=== PATIENT | male | born 1985 | race Caucasian/White ===

== ENCOUNTER 2016-12-29 19:24 | Emergency (ER) | payer MEDICAID ==
[~2016-12-29] VITALS: Ht 167.6 cm; Wt 69.0 kg
[~2016-12-29 19:24] MED LIST: AZIT250T94 PO; CHLO10CA6 PO; CHLO25CA9 PO; CODE118S PO
[2016-12-29 19:26] VITALS: Ht 167.6 cm; Wt 69.0 kg
[2016-12-29] MEDS ORDERED: ACETAMINOPHEN 325 MG TAB PO STA (20:27)
[2016-12-29] MEDS ORDERED: CEFTRIAXONE 1 GM/50 ML (PMX) 50 ML IVPB STA (20:27)
[2016-12-29] MEDS ORDERED: ONDANSETRON 4 MG INJ IV STA (20:27)
[2016-12-29] MEDS ORDERED: SOD CHLORIDE 0.9% IV ONE (20:30)
--- NOTE | 2016-12-29 21:00 | RADRPT ---
PROCEDURE: XR Chest. CLINICAL INDICATION: Possible sepsis. TECHNIQUE: Single frontal view of the chest. COMPARISON: 05/25/2016. FINDINGS: The cardiomediastinal silhouette is within normal limits. The lungs are clear. No signs of pleural f luid or pneumothorax are seen. The osseous structures and soft tissues are unremarkable. IMPRESSION: No evidence for active cardiopulmonary disease. RPTAT: [facility] Physician Dimple Date Time Electronically viewed and signed by Ruben Patino Physician on 12/29/2016 20:59 RS/
[2016-12-29 21:13] LABS: ADD SCAN DIFF NO
[2016-12-29 21:15] LABS: BASOPHILS % 0.3 % (0.0-2.0); EOSINOPHILS % 0.6 % (0.0-7.0); HEMATOCRIT 40.5 % (42.0-52.0); HEMOGLOBIN 14.3 g/dl (14.0-18.0); LYMPHOCYTES # 0.8 10^3/ul (0.8-2.9); LYMPHOCYTES % 11.5 % (15.0-51.0); MEAN CORPUSCULAR HGB CONC 35.3 g/dl (32.0-37.0); MEAN CORPUSCULAR VOLUME 87.7 fl (82.0-101.0); MEAN PLATELET VOLUME 8.6 fl (7.4-10.4); MONOCYTE # 0.6 10^3/ul (0.3-0.9); MONOCYTES % 8.8 % (0.0-11.0); NEUTROPHIL # 5.3 10^3/ul (1.6-7.5); NEUTROPHILS % 78.7 % (39.0-77.0); PLATELET COUNT 193 10^3/UL (140-415); RED BLOOD COUNT 4.62 10^6/ul (4.70-6.10); RED CELL DISTRIBUTION WIDTH 12.2 % (11.5-14.5); WHITE BLOOD COUNT 6.7 10^3/ul (4.8-10.8)
--- NOTE | 2016-12-29 21:20 | ERA ---
ER Documentation Chief Complaint Date/Time DATE: 12/29/16 TIME: 21:16 Chief Complaint upper abd pain x 3 days, headache HPI This is a 31-year-old Citizen Of [place]-speaking male presenting with mother who is the health care assistant and seems reliable. Patient has had 3 days of nausea vomiting and 1 day of diarrhea. Patient has reported a fever chills, and general malaise. Patient denies taking any medications to relieve the symptoms. Patient denies any medical conditions. Patient denies cough, pharyngitis, difficulty breathing , chest pain, or headache. Mother denies any altered mental status or change in behavior. ROS All systems reviewed and are negative except as per history of present illness. Medications Home Meds Active Scripts Chlordiazepoxide* (Chlordiazepoxide*) 25 Mg Capsule, 25 MG PO Q8 Y for CONTROL WITHDRAWAL SYMPTOMS, #10 CAP Prov:LUIS ARZOLA 07/12/16 Chlordiazepoxide* (Chlordiazepoxide*) 10 Mg Capsule, 10 MG PO TID, #30 CAP Prov:LUIS ARZOLA 06/19/16 Promethazine w/Codeine (Phenergan w/Codeine Syrup) 5 Ml Syrup, 5 ML PO Q6 Y for COUGH, #120 ML Prov:TRAVIS KENDRICK DO 11/19/15 Azithromycin* (Zithromax*) 250 Mg Tablet, 250 MG PO .ZPACK DIRECTED, #6 TAB TAKE 500 MG (2 TABS) THE FIRST DAY THEN 250 MG (1 TAB) DAYS 2-5 Prov:TRAVIS KENDRICK DO 11/19/15 Allergies Allergies: Coded Allergies: No Known Allergy (Unverified , 11/19/15) PMhx/Soc History of Surgery: No Anesthesia Reaction: No Hx Neurological Disorder: No Hx Respiratory Disorders: No Hx Cardiac Disorders: Yes (pt states low blood pressure) Hx Psychiatric Problems: No Hx Miscellaneous Medical Probl: Yes (ALCOHOLISM WITH WITHDRAWL) Hx Alcohol Use: Yes (binge drinking) Hx Substance Use: No Hx Tobacco Use: No Smoking Status: Never smoker Physical Exam Vitals Vital Signs Date Time Temp Pulse Resp B/P Pulse Ox O2 Delivery O2 Flow Rate FiO2 12/29/16 19:26 101.0 104 20 121/74 100 Physical Exam Const: Well-appearing 31-year-old male presenting with mother in moderate distress. Head: Atraumatic Eyes: Normal Conjunctiva. EOMI. PERRLA. ENT: Normal External Ears, Nose and Mouth. Neck: Full range of motion..~ No meningismus. Resp: Clear to auscultation bilaterally Cardio: Tachycardic. Regular rhythm, no murmurs Abd: Soft, non tender, non distended. Normal bowel sounds. No McBurney's point tenderness. No psoas sign. Skin: Perioral raise papular rash sparing the vermilion border. This rash is new in onset. No rashes visualized anywhere else in the body as well as no history given. Back: No midline or flank tenderness Ext: No cyanosis, or edema Neur: Awake and alert Psych: Normal Mood and Affect Result Diagram: 12/29/16210512/29/162105 Results 24 hrs Laboratory Tests Test 12/29/16 20:48 12/29/16 21:06 Urine Color LT. YELLOW Urine Clarity CLEAR Urine pH 5.5 Urine Specific English 1.020 Urine Ketones NEGATIVE Urine Nitrite NEGATIVE Urine Bilirubin NEGATIVE Urine Urobilinogen 0.2 E.U./dL Urine Leukocyte Esterase NEGATIVE Urine Hemoglobin NEGATIVE Urine Glucose NEGATIVE% Urine Total Protein NEGATIVE White Blood Count 6.710^3/ul Red Blood Count 4.6210^6/ul Hemoglobin 14.3g/dl Hematocrit 40.5% Mean Corpuscular Volume 87.7fl Mean Corpuscular Hemoglobin 31.0pg Mean Corpuscular Hemoglobin Concent 35.3g/dl Red Cell Distribution Width 12.2% Platelet Count 65097^3/UL Mean Platelet Volume 8.6fl Neutrophils % 78.7% Lymphocytes % 11.5% Monocytes % 8.8% Eosinophils % 0.6% Basophils % 0.3% Nucleated Red Blood Cells % 0.0/100WBC Neutrophils # 5.310^3/ul Lymphocytes # 0.810^3/ul Monocytes # 0.610^3/ul Eosinophils # 0.010^3/ul Basophils # 0.010^3/ul Nucleated Red Blood Cells # 0.010^3/ul Prothrombin Time 12.8Sec Prothrombin Time Ratio 1.0 INR International Normalized Ratio 0.96 Activated Partial Thromboplast Time 29.7Sec Sodium Level 136mmol/L Potassium Level 3.7mmol/L Chloride Level 101mmol/L Carbon Dioxide Level 23mmol/L Anion Gap 16 Blood Urea Nitrogen 17mg/dl Creatinine 1.00mg/dl Glucose Level 95mg/dl Lactic Acid Level 0.8mmol/L Calcium Level 9.1mg/dl Total Bilirubin 0.5mg/dl Direct Bilirubin 0.00mg/dl Indirect Bilirubin 0.5mg/dl Aspartate Amino Transf (AST/SGOT) 25IU/L Alanine Aminotransferase (ALT/SGPT) 28IU/L Alkaline Phosphatase 63IU/L Total Protein 7.8g/dl Albumin 4.6g/dl Globulin 3.20g/dl Albumin/Globulin Ratio 1.43 Current Medications Medications (Trade) Dose Ordered Sig/Yovana Route PRN Reason Start Time Stop Time Status Last Admin Dose Admin Acetaminophen 650 mg 650 mg ONCE STAT PO 12/29/16 20:27 12/29/16 20:33 DC 12/29/16 21:22 Ceftriaxone Sodium (Rocephin) 50 ml @ 100 mls/hr ONCE STAT IVPB 12/29/16 20:27 12/29/16 21:32 DC 12/29/16 21:22 Ondansetron HCl 4 mg 4 mg ONCE STAT IV 12/29/16 20:27 12/29/16 20:33 DC 12/29/16 21:22 Sodium Chloride (NS) 2,140 ml @ 2,140 mls/hr BOLUS X1 ONCE IV 12/29/16 20:30 12/29/16 21:29 DC 12/29/16 21:22 Procedures/MDM Patient's 31-year-old male being evaluated with a chief complaint of nausea vomiting and diarrhea. Patient met the sepsis criteria this sepsis labs, chest x-ray, saline and antibiotic was ordered. Labs came back showed no leukocytosis thus antibiotic was canceled before given. All other test results were unremarkable. Patient's labs were remarkable for lymphocytopenia and neutrophilia. At this time I am unable to rule out chronic conditions but have no suspicion for appendicitis, meningitis, PE, ACS, pneumonia, bacteremia, AOM, or endangerment of the airway. Patient's vaccination status is up-to-date. At this time the most likely diagnosis is viral gastroenteritis causing fever. Treatment plan will thus include antipyretics for fever and Zofran for nausea. As well as close follow-up. Diarrhea is not a major complaint for patient so antidiarrheals will not be given. Patient will be given discharge instructions and I have sat down and discussed the importance of follow-up within 12 hours if condition is not improving. Departure Condition: Stable Additional Instructions: Follow up with your PCP within the next 1-3 days for a more thorough evaluation and a possible referral to a specialist. Return the the emergency department immediately if symptoms worsen or change. If you have any questions regarding medications, ask your pharmacist or us before you leave. If any adverse reactions occur while taking your medications, discontinue the treatment and return to the emergency department immediately. Take your medications as directed, and complete the entire course of treatment. ARSALAN FLORES PA-C December 29, 2016 21:20
[2016-12-29 21:31] LABS: INR 0.96; PROTIME 12.8 Sec (12.2-14.2)
[2016-12-29 21:32] LABS: ALBUMIN 4.6 g/dl (3.3-4.9); PARTIAL THROMBOPLASTIN TIME 29.7 Sec (25.0-35.0)
[2016-12-29 21:33] LABS: POTASSIUM 3.7 mmol/L (3.5-5.1)
[2016-12-29 21:35] LABS: ALBUMIN/GLOBULIN RATIO 1.43; BILIRUBIN,INDIRECT 0.5 mg/dl (0-1.1); BILIRUBIN,TOTAL 0.5 mg/dl (0.2-1.3); CALCIUM 9.1 mg/dl (8.4-10.2); TOTAL PROTEIN 7.8 g/dl (6.1-8.1)
[2016-12-29 21:40] LABS: ADD UMIC NO; URINE BILIRUBIN (Dip) NEGATIVE (NEGATIVE); URINE BLOOD (Dip) NEGATIVE (NEGATIVE); URINE COLOR LT. YELLOW (YELLOW); URINE GLUCOSE (Dip) NEGATIVE (NEGATIVE); URINE KETONES (Dip) NEGATIVE (NEGATIVE); URINE LEUKOCYTE ESTERASE (Dip) NEGATIVE (NEGATIVE); URINE NITRITE (Dip) NEGATIVE (NEGATIVE); URINE TOTAL PROTEIN (Dip) NEGATIVE (NEGATIVE); URINE UROBILINOGEN (Dip) 0.2 E.U./dL (0.1-1.0)
[2016-12-29] MEDS ORDERED: ONDA8TAB14 PO (23:01)
[2016-12-29] MEDS ORDERED: IBUP-1542 PO (23:01)
[2016-12-29 23:14] VITALS: BP 118/65; PULSE 92; RESP 16; TEMP 100.4
== END 2016-12-29 23:15 | disposition home or self-care (01) ==
LOC: FTE 19:24
DX: R11.2 Nausea with vomiting, unspecified (principal); R19.7 Diarrhea, unspecified; R50.9 Fever, unspecified; R53.81 Other malaise
CPT/HCPCS: 36415; 71010; 80053; 81003; 83605; 85025; 85610; 85730; 87040; 87086; 96374; 96375; J0696; J2405; J7030; Z7502; Z7610

== ENCOUNTER 2017-07-26 19:11 | Emergency (ER) | payer MEDICAID ==
[~2017-07-26] VITALS: Ht 172.7 cm; Wt 68.1 kg
[~2017-07-26 19:11] MED LIST changes: +IBUP-1542 PO; +ONDA8TAB14 PO
[2017-07-26 19:16] VITALS: Ht 172.7 cm; Wt 68.1 kg
[2017-07-26] MEDS ORDERED: ALBUTEROL 0.083% (NEB) 2.5 MG/3 ML AMP HHN STA (20:20)
[2017-07-26] MEDS ORDERED: predniSONE 20 MG TAB PO ONE (20:30)
[2017-07-26] MEDS ORDERED: PRED20TA PO (20:57)
[2017-07-26] MEDS ORDERED: AZIT250T94 PO (20:57)
[2017-07-26] MEDS ORDERED: ALBU8.5H3 INH (20:57)
--- NOTE | 2017-07-26 21:01 | ERD ---
ER Documentation Chief Complaint Chief Complaint cough x 2 weeks HPI 32-year-old male presents with cough for last 2 weeks. He has productive mucus. He denies fevers. Denies any history of asthma. Is chest pain, vomiting, abdominal pain. ROS All systems reviewed and are negative except as per history of present illness. Medications Home Meds Active Scripts Azithromycin* (Zithromax*) 250 Mg Tablet, 250 MG PO .ZPACK DIRECTED, #6 TAB TAKE 500 MG (2 TABS) THE FIRST DAY THEN 250 MG (1 TAB) DAYS 2-5 Prov:SHALINI HENDERSON MD 07/26/17 Albuterol Sulfate* (Proair HFA*) 8.5 Gm Hfa.aer.ad, 2 PUFF INH Q4, #1 INHALER Prov:SHALINI HENDERSON MD 07/26/17 Prednisone* (Prednisone*) 20 Mg Tab, 40 MG PO DAILY for 4 Days, TAB Start July 27, 2017 Prov:SHALINI HENDERSON MD 07/26/17 Ondansetron (Ondansetron Odt) 8 Mg Tab.rapdis, 8 MG PO Q6H Y for NAUSEA AND/OR VOMITING, #10 TAB Prov:ARSALAN FLORES PA-C 12/29/16 Ibuprofen* (Motrin*) 600 Mg Tab, 600 MG PO Q8, #30 TAB Prov:ARSALAN FLORES PA-C 12/29/16 Chlordiazepoxide* (Chlordiazepoxide*) 25 Mg Capsule, 25 MG PO Q8 Y for CONTROL WITHDRAWAL SYMPTOMS, #10 CAP Prov:LUIS ARZOLA 07/12/16 Chlordiazepoxide* (Chlordiazepoxide*) 10 Mg Capsule, 10 MG PO TID, #30 CAP Prov:LUIS ARZOLA 06/19/16 Promethazine w/Codeine (Phenergan w/Codeine Syrup) 5 Ml Syrup, 5 ML PO Q6 Y for COUGH, #120 ML Prov:TRAVIS KENDRICK DO 11/19/15 Azithromycin* (Zithromax*) 250 Mg Tablet, 250 MG PO .ZPACK DIRECTED, #6 TAB TAKE 500 MG (2 TABS) THE FIRST DAY THEN 250 MG (1 TAB) DAYS 2-5 Prov:TRAVIS KENDRICK DO 11/19/15 Allergies Allergies: Coded Allergies: No Known Allergy (Unverified , 11/19/15) PMhx/Soc Medical and Surgical Hx: pt denies Medical Hx, pt denies Surgical Hx History of Surgery: No Anesthesia Reaction: No Hx Neurological Disorder: No Hx Respiratory Disorders: No Hx Cardiac Disorders: No Hx Psychiatric Problems: No Hx Miscellaneous Medical Probl: No Hx Alcohol Use: No (PREVIOUS ETOH ABUSE) Hx Substance Use: No Hx Tobacco Use: No Smoking Status: Never smoker Physical Exam Vitals Vital Signs Date Time Temp Pulse Resp B/P Pulse Ox O2 Delivery O2 Flow Rate FiO2 07/26/17 20:53 77 16 97 21 07/26/17 19:16 97.7 62 20 127/68 100 Physical Exam Const: [] Alert, [id number] per Head: Atraumatic Eyes: Normal Conjunctiva ENT: Normal External Ears, Nose and Mouth. TMs and oropharynx normal. Neck: Full range of motion..~ No meningismus. Resp: Get with wheezing without rales, retractions. Cardio: Regular rate and rhythm, no murmurs Abd: Soft, non tender, non distended. Normal bowel sounds Skin: No petechiae or rashes Back: No midline or flank tenderness Ext: No cyanosis, or edema Neur: Awake and alert Psych: Normal Mood and Affect Results 24 hrs Current Medications Medications (Trade) Dose Ordered Sig/Yovana Route PRN Reason Start Time Stop Time Status Last Admin Dose Admin Prednisone (Prednisone) 40 mg ONCE ONCE PO 07/26/17 20:30 07/26/17 20:31 DC 07/26/17 20:24 Albuterol (Proventil 0.083% (Neb)) 2.5 mg ONCE STAT HHN 07/26/17 20:20 07/26/17 20:22 DC 07/26/17 20:53 Procedures/MDM She presents with URI symptoms and signs of wheezing without evidence of respiratory distress or hypoxemia. Chest X-ray 1V Interpreted by me: Soft Tissue: No acute abnormalities Bones: No acute abnormalities Mediastinum/Cardiac Silhouette/Lungs: [No acute abnormalities] impression- normal 1 view chest x-ray Patient is given albuterol treatment 1, prednisone 60 mg by mouth. Patient has signs of bronchitis with wheezing and will be treated with pro-air, Zithromax, short course of prednisone, primary care follow-up and return precautions. There is no evidence of hypoxemia, respiratory distress, signs of pneumonia, signs to suggest acute coronary syndrome, abdominal pain, additional emergent causes of presenting complaints. The patient was stable with no new complaints during the ER course. Clinically, there is no current evidence to suggest meningitis, sepsis, acute abdomen, pneumonia, acute coronary syndrome, pulmonary embolism, or any other emergent condition appearing to require further evaluation or hospitalization. The patient should certainly return for any new or worsening symptoms per the aftercare instructions. They should otherwise follow-up with her primary care doctor for reevaluation this week. Departure Diagnosis: Primary Impression: Wheezing Additional Impression: Acute bronchitis Bronchitis organism: unspecified organism Qualified Code: J20.9 - Acute bronchitis, unspecified organism Condition: Stable Patient Instructions: Bronchitis With Wheezing (Adult) Additional Instructions: X-ray normal. Cheque otro vez con euceda doctor primario en el proximo crane or regresa para mas o nueva simptomas. SHALINI HENDERSON MD Jul 26, 2017 21:01
--- NOTE | 2017-07-26 21:05 | RADRPT ---
PROCEDURE: XR Chest. CLINICAL INDICATION: chest pain TECHNIQUE: Single frontal view of the chest was obtained COMPARISON: 05/25/16 FINDINGS: The heart and mediastinum are within normal limits. The lungs are clear. There is no pleural effusion or pneumothorax. RPTAT: AA IMPRESSION: No acute disease. .Lv Saxena MD, MD Date Time Electronically viewed and signed by .Lv Saxena MD, on 07/26/2017 21:05 .S/
== END 2017-07-26 21:09 | disposition home or self-care (01) ==
LOC: FTE 19:11
DX: J20.9 Acute bronchitis, unspecified (principal)
CPT/HCPCS: 71010; 94664; J7512; Z7502; Z7610

== ENCOUNTER 2018-07-06 05:55 | Emergency (ER) | END 2018-07-06 08:03 | disposition home or self-care (01) ==

== ENCOUNTER 2018-07-07 04:51 | Emergency (ER) | END 2018-07-07 06:10 | disposition home or self-care (01) ==

== ENCOUNTER 2018-08-01 00:45 | Emergency (ER) | payer MEDICAID ==
[~2018-08-01] VITALS: Ht 165.1 cm; Wt 97.3 kg
[~2018-08-01 00:45] MED LIST changes: +ALBU8.5H8 INH; +AZIT250T PO; -AZIT250T94 PO; +LORA-441 PO; +PRED20TA PO
[2018-08-01 00:48] VITALS: Ht 165.1 cm; Wt 97.3 kg
[2018-08-01] MEDS ORDERED: ACETAMINOPHEN 325 MG TAB PO ONE (04:30)
[2018-08-01] MEDS ORDERED: CHLO25CA9 PO (04:41)
[2018-08-01] MEDS ORDERED: ACET500C5 PO (04:41)
[2018-08-01 04:55] VITALS: BP 129/91; PULSE 71; RESP 15
--- NOTE | 2018-08-01 06:10 | ERD ---
ER Documentation Chief Complaint Chief Complaint vomiting/FLYNN/anxiety/lack of sleep x4 days s/p drinking. last etoh yest HPI 33-year-old male with history of alcohol abuse present ED for symptoms of alcohol withdrawal. Patient states that he was binge drinking for last 4 days. He now complains of constant chest pain for the last 3 days. Patient also complaining of not able to sleep because of anxiety and chest pain. He reports episodes of vomiting, but denies nausea and vomiting at this time. He did not take any medication for pain at home. Denies shortness of breath. Denies suicidal or homicidal ideations. ROS All systems reviewed and are negative except as per history of present illness. Medications Home Meds Active Scripts Acetaminophen* (Tylophen*) 500 Mg Capsule, 1 CAP PO Q6H PRN for PAIN AND OR ELEVATED TEMP, #20 CAP Prov:JOHNNY ROBERTSON NP 08/01/18 Chlordiazepoxide* (Chlordiazepoxide*) 25 Mg Capsule, 25 MG PO Q8, #10 CAP Prov:JOHNNY ROBERTSON NP 08/01/18 Lorazepam* (Ativan*) 0.5 Mg Tablet, 0.5 MG PO Q8, #7 TAB Prov:LORA BULLOCK MD 07/06/18 Azithromycin* (Zithromax*) 250 Mg Tablet, 250 MG PO .ZPACK DIRECTED, #6 TAB TAKE 500 MG (2 TABS) THE FIRST DAY THEN 250 MG (1 TAB) DAYS 2-5 Prov:SHALINI HENDERSON MD 07/26/17 Albuterol Sulfate* (Proair HFA*) 8.5 Gm Hfa.aer.ad, 2 PUFF INH Q4, #1 INHALER Prov:SHALINI HENDERSON MD 07/26/17 Prednisone* (Prednisone*) 20 Mg Tab, 40 MG PO DAILY for 4 Days, TAB Start July 27, 2017 Prov:SHALINI HENDERSON MD 07/26/17 Ondansetron (Ondansetron Odt) 8 Mg Tab.rapdis, 8 MG PO Q6H PRN for NAUSEA AND/OR VOMITING, #10 TAB Prov:ARSALAN FLORES PA-C 12/29/16 Ibuprofen* (Motrin*) 600 Mg Tab, 600 MG PO Q8, #30 TAB Prov:ARSALAN FLORES PA-C 12/29/16 Chlordiazepoxide* (Chlordiazepoxide*) 25 Mg Capsule, 25 MG PO Q8 PRN for CONTROL WITHDRAWAL SYMPTOMS, #10 CAP Prov:LUIS ARZOLA Meri 07/12/16 Chlordiazepoxide* (Chlordiazepoxide*) 10 Mg Capsule, 10 MG PO TID, #30 CAP Prov:DAVIDOSVALDO HUMPHREYEL Karmen. 06/19/16 Promethazine w/Codeine (Phenergan w/Codeine Syrup) 5 Ml Syrup, 5 ML PO Q6 PRN for COUGH, #120 ML Prov:TRAVIS KENDRICK DO 11/19/15 Azithromycin* (Zithromax*) 250 Mg Tablet, 250 MG PO .ZPACK DIRECTED, #6 TAB TAKE 500 MG (2 TABS) THE FIRST DAY THEN 250 MG (1 TAB) DAYS 2-5 Prov:TRAVIS KENDRICK DO 11/19/15 Allergies Allergies: Coded Allergies: No Known Allergy (Unverified , 11/19/15) PMhx/Soc History of Surgery: No Anesthesia Reaction: No Hx Neurological Disorder: No Hx Respiratory Disorders: No Hx Cardiac Disorders: No Hx Psychiatric Problems: No Hx Miscellaneous Medical Probl: Yes (anxiety) Hx Alcohol Use: Yes (DAILY) Hx Substance Use: No Hx Tobacco Use: No Smoking Status: Never smoker Physical Exam Vitals Vital Signs Date Temp Pulse Resp B/P (MAP) Pulse Ox O2 O2 Flow FiO2 Time Delivery Rate 08/01/18 98.0 71 15 129/91 99 Room Air 04:55 (104) 08/01/18 98.6 85 17 134/88 98 00:48 (103) Physical Exam General: Well-developed, well-nourished, conscious and coherent, in no distress Skin: Warm and dry without rash, good texture and turgor Head: Normocephalic without evidence of trauma Eyes: Sclera and conjunctivae normal; pupils equal, round, and reactive to light; extraocular movements are intact. Not icteric Chest: Normal AP diameter. Good expansion without retractions. Nontender. Lungs are clear to auscultate bilaterally with good tidal volume Heart: Regular rate and rhythm. No murmur, rub, or gallops heard Abdomen: Soft and nontender without masses, guarding, or rebound. Bowel sounds are active. No hepatosplenomegaly Extremities: Full range of motion. Good strength bilaterally. No erythema, ecchymosis, or edema. Peripheral pulses are intact. Sensation intact. Hand barely tremulous Neuro: Alert and oriented 4, GCS 15. Speech clear. Gait normal Psych: Patient appears to be anxious Results 24 hrs Current Medications Medications Dose Sig/Yovana Start Time Status Last (Trade) Ordered Route PRN Stop Time Admin Dose Reason Admin 650 mg ONCE ONCE 08/01/18 DC 08/01/18 Acetaminophen PO 04:30 04:30 (Tylenol 08/01/18 Tab) 04:31 Procedures/MDM 33-year-old male with history of alcohol abuse present ED for alcohol withdrawal symptoms. His symptoms are mild, about 4-5 on CIWA scale. I opted not to give him any benzodiazepine in the ED. Low suspicion for delirium tremens. Patient is given prescription of Librium. Alcohol cessation counseling provided. Total length of counseling 10 minutes. Patient complains of chest pain. Tylenol given to the patient in the ED for pain relief. EKG: Normal sinus rhythm, rate 77 bpm, normal intervals, normal axis. No ST segment elevation or depression. No ectopic beats. No QT prolongation. No other EKG abnormalities. EKG read by Dr. Arzola. I doubt IA. Patient appears well, stable for discharge and outpatient management. Medical decision making shared with patient and family. Education provided to patient and family. Patient and family expressed understanding of the plan. Medications on discharge: Librium, Tylenol. Follow-up: Primary care provider in 2-3 days or return to ED if worse. The case was reviewed and discussed with Dr. Arzola, who agrees with the plan of care. Disclaimer: Inadvertent spelling and grammatical errors are likely due to EHR/dictation software use and do not reflect on the overall quality of patient care. Also, please note that the electronic time recorded on this note does not necessarily reflect the actual time of the patient encounter. Departure Diagnosis: Primary Impression: Alcohol withdrawal Additional Impression: Alcohol abuse Condition: Stable Patient Instructions: Alcohol Withdrawal Referrals: COMMUNITY CLINICS YOU HAVE RECEIVED A MEDICAL SCREENING EXAM AND THE RESULTS INDICATE THAT YOU DO NOT HAVE A CONDITION THAT REQUIRES URGENT TREATMENT IN THE EMERGENCY DEPARTMENT. FURTHER EVALUATION AND TREATMENT OF YOUR CONDITION CAN WAIT UNTIL YOU ARE SEEN IN YOUR DOCTORS OFFICE WITHIN THE NEXT 1-2 DAYS. IT IS YOUR RESPONSIBILITY TO MAKE AN APPOINTMENT FOR FOLOW-UP CARE. IF YOU HAVE A PRIMARY DOCTOR --you should call your primary doctor and schedule an appointment IF YOU DO NOT HAVE A PRIMARY DOCTOR YOU CAN CALL OUR PHYSICIAN REFERRAL HOTLINE AT IF YOU CAN NOT AFFORD TO SEE A PHYSICIAN YOU CAN CHOSE FROM THE FOLLOWING [facility] [address] [facility] [address] [facility] [facility] [address] [facility] [address] [facility] [facility] [address] [facility]. [address] Additional Instructions: Call your primary care doctor TOMORROW for an appointment during the next 2-3 days.See the doctor sooner or return here if your condition worsens before your appointment time. JOHNNY ROBERTSON NP Aug 01, 2018 06:09
== END 2018-08-01 04:55 | disposition home or self-care (01) ==
LOC: FTE 00:45
DX: F10.239 Alcohol dependence with withdrawal, unspecified (principal); F10.10 Alcohol abuse, uncomplicated; R40.2412 Glasgow coma scale score 13-15, at arrival to emergency department; R07.9 Chest pain, unspecified
CPT/HCPCS: 93005; Z7502; Z7610

== ENCOUNTER 2018-09-22 07:14 | Emergency (ER) | payer SELFPAY ==
[~2018-09-22] VITALS: Ht 175.3 cm; Wt 68.3 kg
[~2018-09-22 07:14] MED LIST changes: +ACET500C5 PO
[2018-09-22 07:15] VITALS: BP 137/76; PULSE 84; RESP 18; Ht 175.3 cm; Wt 68.3 kg
--- NOTE | 2018-09-22 07:42 | ERD ---
ER Documentation Chief Complaint Chief Complaint suture removal on chin HPI 33-year-old male presents for evaluation for suture removal and a chin laceration. Is been approximately 2 weeks. He has no fevers, redness, discharge. Denies any other symptoms. ROS All systems reviewed and are negative except as per history of present illness. Medications Home Meds Active Scripts Acetaminophen* (Tylophen*) 500 Mg Capsule, 1 CAP PO Q6H PRN for PAIN AND OR ELEVATED TEMP, #20 CAP Prov:JOHNNY ROBERTSON NP 08/01/18 Chlordiazepoxide* (Chlordiazepoxide*) 25 Mg Capsule, 25 MG PO Q8, #10 CAP Prov:JOHNNY ROBERTSON NP 08/01/18 Lorazepam* (Ativan*) 0.5 Mg Tablet, 0.5 MG PO Q8, #7 TAB Prov:LORA BULLOCK MD 07/06/18 Azithromycin* (Zithromax*) 250 Mg Tablet, 250 MG PO .ZPACK DIRECTED, #6 TAB TAKE 500 MG (2 TABS) THE FIRST DAY THEN 250 MG (1 TAB) DAYS 2-5 Prov:SHALINI HENDERSON MD 07/26/17 Albuterol Sulfate* (Proair HFA*) 8.5 Gm Hfa.aer.ad, 2 PUFF INH Q4, #1 INHALER Prov:SHALINI HENDERSON MD 07/26/17 Prednisone* (Prednisone*) 20 Mg Tab, 40 MG PO DAILY for 4 Days, TAB Start July 27, 2017 Prov:SHALINI HENDERSON MD 07/26/17 Ondansetron (Ondansetron Odt) 8 Mg Tab.rapdis, 8 MG PO Q6H PRN for NAUSEA AND/OR VOMITING, #10 TAB Prov:ARSALAN FLORES PA-C 12/29/16 Ibuprofen* (Motrin*) 600 Mg Tab, 600 MG PO Q8, #30 TAB Prov:ARSALAN FLORES PA-C 12/29/16 Chlordiazepoxide* (Chlordiazepoxide*) 25 Mg Capsule, 25 MG PO Q8 PRN for CONTROL WITHDRAWAL SYMPTOMS, #10 CAP Prov:LUIS ARZOLA 07/12/16 Chlordiazepoxide* (Chlordiazepoxide*) 10 Mg Capsule, 10 MG PO TID, #30 CAP Prov:LUIS ARZOLA 06/19/16 Promethazine w/Codeine (Phenergan w/Codeine Syrup) 5 Ml Syrup, 5 ML PO Q6 PRN for COUGH, #120 ML Prov:TRAVIS KENDRICK DO 11/19/15 Azithromycin* (Zithromax*) 250 Mg Tablet, 250 MG PO .ZPACK DIRECTED, #6 TAB TAKE 500 MG (2 TABS) THE FIRST DAY THEN 250 MG (1 TAB) DAYS 2-5 Prov:TRAVIS KENDRICK DO 11/19/15 Allergies Allergies: Coded Allergies: No Known Allergy (Unverified , 11/19/15) PMhx/Soc Medical and Surgical Hx: pt denies Surgical Hx History of Surgery: No Anesthesia Reaction: No Hx Neurological Disorder: No Hx Respiratory Disorders: No Hx Cardiac Disorders: No Hx Psychiatric Problems: No Hx Miscellaneous Medical Probl: Yes (anxiety) Hx Alcohol Use: Yes (DAILY) Hx Substance Use: No Hx Tobacco Use: No Smoking Status: Never smoker FmHx Family History: No diabetes, No coronary disease, No other Physical Exam Vitals Vital Signs Date Temp Pulse Resp B/P (MAP) Pulse Ox O2 O2 Flow FiO2 Time Delivery Rate 09/22/18 98.0 84 18 137/76 99 07:15 (96) Physical Exam Const: No acute distress Head: Atraumatic Eyes: Normal Conjunctiva ENT: Normal External Ears, Nose and Mouth. Healing laceration on the chin without redness, bleeding or discharge. Neck: Full range of motion. No meningismus. Resp: Clear to auscultation bilaterally Cardio: Regular rate and rhythm, no murmurs Abd: Soft, non tender, non distended. Normal bowel sounds Skin: No petechiae or rashes Back: No midline or flank tenderness Ext: No cyanosis, or edema Neur: Awake and alert Psych: Normal Mood and Affect Procedures/MDM Sutures removed without complications. Patient has significant scarring possible hypertrophy of scar. Patient has no signs of infection, additional complications. We discharged home with instructions for wound care, return precautions for fevers, redness, discharge, new or worsening symptoms. The patient was stable with no new complaints during the ER course. Clinically, there is no current evidence to suggest meningitis, sepsis, acute abdomen, pneumonia, stroke, acute coronary syndrome, pulmonary embolism, aortic dissection or any other emergent condition appearing to require further evaluation or hospitalization. Patient counseled regarding my diagnostic impres graciela and care plan. Prior to discharge all questions answered. Pt agrees with treatment plan and understands strict return precautions. Pt is instructed to follow up with primary care provider within 24-48 hours. Precautionary instructions provided including instructions to return to the ER if not improving or for any worsening or changing symptoms or concerns. Departure Diagnosis: Primary Impression: Encounter for removal of sutures Condition: Stable Patient Instructions: Suture Removal, No Complication SHALINI HENDERSON MD Sep 22, 2018 07:42
== END 2018-09-22 07:47 | disposition home or self-care (01) ==
LOC: FTE 07:14
DX: Z48.02 Encounter for removal of sutures (principal)
CPT/HCPCS: 99281